=== PATIENT | female | born 1955 | race Caucasian/White ===

== ENCOUNTER → 2016-05-18 | Outpatient (CLI) | payer BC, OTHER ==
[~2016-05-18] MED LIST: LEXA1TAB2 PO; VITA200015 PO
--- NOTE | 2016-05-18 15:26 | REP ---
MR BRAIN WITHOUT AND WITH CONTRAST: HISTORY: Hemifacial spasm. Contrast: ProHance 12 mL. Several punctate areas of increased signal intensity on T2-weighted images are present in the subcortical white matter. This represents small vessel ischemic disease. There is no intraparenchymal hemorrhage, infarct, mass or midline shift. There is no abnormal enhancement. The ventricular system is normal in appearance. There is no extracerebral collection. Mucosal thickening is present in the ethmoid and maxillary sinuses and mastoid air cells. IMPRESSION: Minimal small vessel ischemic disease. Signed by Tho Fernandez MD 05/18/2016 03:29 P
--- NOTE | 2016-05-18 15:31 | REP ---
MR CERVICAL SPINE WITHOUT AND WITH CONTRAST: HISTORY: Hemifacial spasm. Contrast: ProHance 12 mL A small central disc protrusion is present at the C3-4 level. There is minimal effacement of the thecal sac without spinal cord compression. The C3 neural foramina are patent. A disc bulge is present at the C4-5 level. There is minimal effacement of the thecal sac without spinal cord compression. The C4 neural foramina are patent. A small central disc protrusion is present at the C5-6 level. There is minimal effacement of the thecal sac without spinal cord compression. The C5 neural foramina are patent. A disc bulge is present at the C6-7 level. There is minimal effacement of the thecal sac without spinal cord compression. The C6 neural foramina are patent. There is no other disc bulge or herniation. The remaining neural foramina are patent. The spinal cord is normal in signal intensity. There is no abnormal enhancement. Increased signal intensity on T2 weighted images is present in the endplates of the C5 and C6 vertebral bodies. This represents degenerative change. The C4-5 through C6-7 intervertebral discs are decreased in height consistent with disc degeneration. IMPRESSION: There is cervical spondylosis at the C3-4 through C6-7 levels without spinal cord compression. Signed by Tho Fernandez MD 05/18/2016 03:52 P
== END ==
LOC: M RAD 13:26
PROVIDERS: ATTEND Ophthalmology
DX: G51.3 Clonic hemifacial spasm (principal)

== ENCOUNTER → 2016-05-29 | Outpatient (CLI) | payer BC, OTHER ==
[~2016-05-29] VITALS: Ht 162.6 cm; Wt 61.2 kg
[~2016-05-29] MED LIST changes: +LIDOCAINE 2% INJ 100 MG/5 ML SDV (FOR ANES.) As Ordered ONE; +NS 1,000 ML IV SCH; +PROPOFOL 200 MG/20 ML VIAL As Ordered ONE; +ePHEDrine SULFATE 25 MG/5 ML(5MG/ML) SYRINGE As Ordered ONE
--- NOTE | 2016-05-29 14:44 | ROOR ---
Patient Name: Selina Barron Procedure Date: 05/29/2016 2:05 PM Date of : 1955 Age: 60 Room: [facility] Gender: Female Note Status: Finalized Procedure: Colonoscopy to Cecum + Cold Snare Polypectomy + Tattoeing Indications: High risk colon cancer surveillance: Personal history of adenoma with villous component Providers: Rene Lloyd MD Referring MD: Kylah SCOTT DO Requesting Provider: Medicines: Monitored Anesthesia Care Complications: No immediate complications. Procedure: Pre-Anesthesia Assessment: - The heart rate, respiratory rate, oxygen saturations, blood pressure, adequacy of pulmonary ventilation, and response to care were monitored throughout the procedure. The Colonoscope was introduced through the anus and advanced to the cecum, identified by appendiceal orifice and ileocecal valve. The colonoscopy was performed without difficulty. The patient tolerated the procedure well. The quality of the bowel preparation was excellent. Findings: The perianal and digital rectal examinations were normal. Non-bleeding internal hemorrhoids were found during retroflexion. The hemorrhoids were small and Grade I (internal hemorrhoids that do not prolapse). A large polyp was found in the proximal ascending colon. The polyp was carpet-like and sessile. The polyp was removed with a cold snare. Polyp resection was incomplete. The resected tissue was retrieved. Area was successfully injected with 4 mL Spot (carbon black) for tattooing. The exam was otherwise without abnormality on direct and retroflexion views. Impression: - Non-bleeding internal hemorrhoids. - One large polyp in the proximal ascending colon, removed with a cold snare. Incomplete resection. Resected tissue retrieved. Injected. - The examination was otherwise normal on direct and retroflexion views. - The exam was otherwise normal to the cecum. Recommendation: - Patient has a contact number available for emergencies. The signs and symptoms of potential delayed complications were discussed with the patient. Return to normal activities tomorrow. Written discharge instructions were provided to the patient. - High fiber diet. - Discharge patient to home. - Continue present medications. - Await pathology results. - Return to referring physician. - Check Portal Online for Path Results.([email or web address] - The findings and recommendations were discussed with the patient's family. Rene Lloyd MD Rene Lloyd MD 05/29/2016 2:44:21 PM This report has been signed electronically. Number of Addenda: 0 Note Initiated On: 05/29/2016 2:05 PM Estimated Blood Loss: Estimated blood loss: none.
[2016-05-29 15:40] VITALS: BP 159/85
== END ==
LOC: M OPP 12:29
PROVIDERS: ATTEND Internal Medicine Gastroenterology
DX: Z09 Encounter for follow-up examination after completed treatment for conditions other than malignant neoplasm (principal); Z86.010 Personal history of colon polyps; Z83.71 Family history of colonic polyps; D12.2 Benign neoplasm of ascending colon; K64.0 First degree hemorrhoids; F41.9 Anxiety disorder, unspecified; F32.9 Major depressive disorder, single episode, unspecified; E78.5 Hyperlipidemia, unspecified; G47.30 Sleep apnea, unspecified; Z79.899 Other long term (current) drug therapy

== ENCOUNTER 2016-07-09 08:10 | Inpatient (IN) | payer BC, OTHER ==
[~2016-07-09] VITALS: Ht 162.6 cm; Wt 61.0 kg
[~2016-07-09 08:10] MED LIST changes: -LIDOCAINE 2% INJ 100 MG/5 ML SDV (FOR ANES.) As Ordered ONE; -NS 1,000 ML IV SCH; -PROPOFOL 200 MG/20 ML VIAL As Ordered ONE; -ePHEDrine SULFATE 25 MG/5 ML(5MG/ML) SYRINGE As Ordered ONE
[2016-07-09] MEDS ORDERED: ERTAPENEM SODIUM 1 GM in NS MINI-BAG PLUS 50 ML IV ONE (08:30)
[2016-07-09] MEDS ORDERED: LR 1,000 ML IV SCH ×2 (08:30→14:30)
[2016-07-09] MEDS ORDERED: ALVIMOPAN 12 MG CAPSULE (ENTEREG) PO ONE (08:30)
[2016-07-09] MEDS ORDERED: LR 1,000 ML IV ONE (08:30)
[2016-07-09 08:58] LABS: MEAN CORPUSCULAR HEMOGLOBIN 30.3 pg (27.0-33.0); MEAN CORPUSCULAR HGB CONC 33.7 g/dl (32.0-36.5); MEAN CORPUSCULAR VOLUME 89.9 fl (80.0-96.0); RED CELL DISTRIBUTION WIDTH 12.6 % (11.5-14.5); WHITE BLOOD COUNT 4.6 K/mm3 (4.0-10.0)
[2016-07-09] MEDS: ESCITALOPRAM OXALATE 10 MG TAB (LEXAPRO) PO SCH (09:00)
[2016-07-09 09:26] LABS: ANION GAP 8 MEQ/L (8-16); BLOOD UREA NITROGEN 4 MG/DL (7-18); CALCIUM LEVEL 8.7 MG/DL (8.5-10.1); CARBON DIOXIDE LEVEL 28 MEQ/L (21-32); CHLORIDE LEVEL 100 MEQ/L (98-107); CREATININE FOR GFR 0.65 MG/DL (0.55-1.02); GLOMERULAR FILTRATION RATE > 60.0 (>51); GLUCOSE, FASTING 98 MG/DL (70-105); POTASSIUM SERUM 3.2 MEQ/L (3.5-5.1); SODIUM LEVEL 136 MEQ/L (136-145)
[2016-07-09] MEDS ORDERED: BUPIVACAINE HCL 0.25% 30 ML VIAL As Ordered ONE (10:31)
--- NOTE | 2016-07-09 11:03 | ECGEPIP ---
Stationary ECG Study [facility] Test Date: 2016-07-09 Pat Name: BUTCH DUMONT Department: Room: [place] [address] Gender: F Pack Operator: EMILE : 1955 Requested By: Sundeep Jackson Order Number: [id number] Reading MD: Nereida Gandhi Measurements Intervals [place] Rate: 76 P: 38 VA: 132 QRS: -12 QRSD: 106 T: 29 QT: 389 QTc: 438 Interpretive Statements SINUS RHYTHM INCOMP RBBB MODERATE T-WAVE ABNORMALITY, CONSIDER ANTERIOR ISCHEMIA no prior Electronically Signed On 07-09-2016 11:02:52 EDT by Nereida Gandhi
[2016-07-09] MEDS ORDERED: MIDAZOLAM INJ 2 MG/2 ML VIAL (J2250) As Ordered ONE (12:06)
[2016-07-09] MEDS ORDERED: fentaNYL 250 MCG/5 ML INJECTION (J3010) As Ordered ONE (12:06)
[2016-07-09] MEDS ORDERED: HYDROmorphone HCL 2 MG/ML 1ML VIAL (J1170) As Ordered ONE (12:06)
[2016-07-09] MEDS ORDERED: PROPOFOL 200 MG/20 ML VIAL As Ordered ONE ×2 (12:06→12:07)
[2016-07-09] MEDS ORDERED: dexameTHASONE 4 MG/ML 1ML VIAL (J1100) As Ordered ONE (12:06)
[2016-07-09] MEDS ORDERED: LIDOCAINE 2% INJ 100 MG/5 ML SDV (FOR ANES.) As Ordered ONE (12:07)
[2016-07-09] MEDS ORDERED: NEOSTIGMINE 1MG/ML 5 ML SYRINGE (J2710) As Ordered ONE (12:07)
[2016-07-09] MEDS ORDERED: ROCURONIUM BROMIDE 50 MG/5 ML VIAL As Ordered ONE (12:07)
[2016-07-09] MEDS ORDERED: ONDANSETRON 4MG/2ML VIAL (J2405) As Ordered ONE (12:07)
[2016-07-09] MEDS ORDERED: GLYCOPYRROLATE INJ 0.2 MG/ML 2 ML VIAL As Ordered ONE (12:07)
[2016-07-09] MEDS ORDERED: METOCLOPRAMIDE INJ 10MG/2ML VIAL (J2765) IV PRN (14:15)
[2016-07-09] MEDS ORDERED: MORPHINE 2 MG/ML 1ML SYRINGE IV PRN (14:15)
[2016-07-09] MEDS ORDERED: ONDANSETRON 4MG/2ML VIAL (J2405) IV PRN ×2 (14:15→14:30)
[2016-07-09] MEDS ORDERED: NORCO, ANEXSIA 5/325MG TABLET (HYDROcodone/ACETAMINOPHEN) PO PRN ×2 (14:15)
[2016-07-09] MEDS ORDERED: fentaNYL 100 MCG/2 ML INJECTION (J3010) IV PRN (14:30)
[2016-07-09 15:20] VITALS: BP 122/62
[2016-07-09 15:50] VITALS: BP 104/55
[2016-07-09 16:50] VITALS: BP 107/56
[2016-07-09 17:50] VITALS: BP 104/55
[2016-07-09] MEDS: KETOROLAC 30 MG/ML VIAL (J1885) IV SCH ×2 (18:25→22:19)
[2016-07-09] MEDS: LR 1,000 ML IV SCH (18:25)
[2016-07-09 18:50] VITALS: BP 102/51
[2016-07-09 19:50] VITALS: BP 128/65
[2016-07-09] MEDS: ENOXAPARIN 40 MG/0.4 ML SYRINGE (J1650) SC SCH (22:18)
[2016-07-09] MEDS: ALVIMOPAN 12 MG CAPSULE (ENTEREG) PO SCH (22:19)
[2016-07-10] MEDS: LR 1,000 ML IV SCH ×2 (01:31→12:27)
[2016-07-10 02:00] VITALS: BP 105/66
[2016-07-10] MEDS: KETOROLAC 30 MG/ML VIAL (J1885) IV SCH ×2 (03:44→10:25)
[2016-07-10 06:00] VITALS: BP 128/66
--- NOTE | 2016-07-10 06:49 | RO ---
DATE OF PROCEDURE: 07/09/2016 PREOPERATIVE DIAGNOSIS: Villous adenoma of ascending colon. POSTOPERATIVE DIAGNOSIS: Villous adenoma of ascending colon. PROCEDURE PERFORMED: Laparoscopic right hemicolectomy with ileocolonic anastomosis. SURGEON: Dr. Sundeep Jackson DIGITAL PRODUCTION OPERATOR: Dr. Joseph. SECOND OPHTHALMOLOGIST: Christopher Casas, MS-3 ANESTHESIA: General. INDICATIONS FOR PROCEDURE: Patient is a 60-year-old woman who on colonoscopy approximately 4 years ago was found to have a polypoid lesion in the ascending colon. This was resected with pathology revealing tubulovillous adenoma. On followup colonoscopy in December 2015, she was found to have a recurrence of this mass in the mid ascending colon with a resection again performed. Pathology revealed multiple fragments of villous adenoma. She underwent a short interval followup colonoscopy on 05/29/2016 and the polypoid mass was again identified in the mid ascending colon. Multiple fragments of villous adenoma were identified with some focal architectural disarray but no high-grade dysplasia or carcinoma. The patient was now referred for resection. She is for a laparoscopic right hemicolectomy. OPERATIVE PROCEDURE: The patient was taken to the operating room and placed under general endotracheal anesthesia. Thromboembolic deterrent stockings (TEDS) and sequential were utilized. A Stinson catheter was inserted. The patient's abdomen was prepped and draped in a sterile fashion. 0.25% Marcaine was infiltrated along the midline just inferior to the umbilicus. A short midline incision was made and deepened through the fascia and peritoneum under direct vision. A Les cannula was inserted and the abdomen was inflated with carbon dioxide gas. The laparoscope was inserted. She was noted to have a band of adhesions attaching the mid ascending colon to the anterior abdominal wall. There was some dark staining in the anterior wall of the proximal ascending colon consistent with a carbon spot marker. A 5 mm trocar was placed in the low midline and a second 5 mm trocar was placed in the left lower quadrant. Using the harmonic scalpel, the adhesions of the colon to the anterior abdominal wall in the right lower quadrant were divided. The lateral attachments of the cecum and ascending colon were divided following this up along the lateral abdominal wall. The attachments above the hepatic flexure and proximal transverse colon were divided , freeing the colon so this could be pulled inferiorly. Further dissection was carried out in the right upper quadrant to mobilize the hepatic flexure. The retroperitoneal duodenum was identified and protected. A site was selected for division of the proximal transverse colon just proximal to the middle colic vessels. A third 5 mm trocar was placed in the left upper quadrant for additional retraction. The mesentery of the transverse colon was divided just proximal to the middle colic vessels. This was extended up to the wall of the colon and the colon was transected with a firing of the [place] stapler with green negin. A second load was required to complete the division. Attention was then turned to the terminal ileum. Some attachments laterally were divided with the Harmonic and an opening was created through the mesentery of the terminal ileum and the ileum was divided with the [place] stapler. The right colon was then mobilized by dividing any remaining lateral and posterior attachments and dividing the right colon mesentery. The ileocolic vessel was identified clearly and divided using the Harmonic without any bleeding. Dissection proceeded up dividing the right colon mesentery. The final attachments anterior to the right kidney were then divided and the colon was freed. The operative area was irrigated and inspected and there was no evidence of bleeding. Graspers were then placed on the end of the ileum, the specimen, and the end of the transverse colon. The abdomen was then deflated and the Les cannula was removed. The incision was extended to about 5 cm. A small Mal retractor was placed. The specimen was delivered through the wound and set aside. The ends of the small and large bowel was then brought through the retractor. These were aligned with several simple sutures of #3-0 Vicryl and a stapled anastomosis was performed with a linear cutter 55 stapler and completed with a load of the TX60G stapler. A single #3-0 Vicryl was used to imbricate one end of the staple line. The staple line appeared good with no bleeding but excellent vascularity of the tissues. There was no evidence of leak. The anastomosis was washed with saline and then reduced into the abdomen. The Mal retractor was removed. The surgical team all then changed gown and gloves and we changed to the closing tray of sterile instruments. During this time, I opened the specimen. The patient was found to have an approximately 4 cm long x 1-1/2-2 cm wide polypoid lesion in the proximal ascending colon. There were two metallic hemostatic clips attached to this tissue. There was another smaller polyp in the end of the cecum which was perhaps 6-7 mm in size. The specimen was placed in formalin for permanent pathology. On returning to the patient's abdomen, the peritoneum in the lower midline incision was closed with a running suture of #0 Vicryl. The fascia was then closed with interrupted simple sutures of #1 Vicryl. The wound was irrigated with saline several times during the closure. The abdomen was then reinflated. The laparoscope was placed. The anastomosis was identified in the right mid to upper abdomen. The patient was tilted to a reverse Trendelenburg position and rolled to the left. Some small bowel was pulled from posterior to the anastomosis so that this would lie against the retroperitoneum. The anastomosis appeared to slide slightly further into the right mid to lower abdomen. There was no evidence of any leak. There was no bleeding identified. The patient was then returned to a flat position. The abdomen was deflated and the trocars were all removed. The skin incisions were all closed with buried #4-0 and #5-0 Vicryl. Small dressings were applied. The patient tolerated the procedure well without apparent complication. She was awakened in the operating room, extubated and moved to the recovery room in stable condition. MARILU
[2016-07-10] MEDS: ESCITALOPRAM OXALATE 10 MG TAB (LEXAPRO) PO SCH (09:10)
[2016-07-10] MEDS: ALVIMOPAN 12 MG CAPSULE (ENTEREG) PO SCH ×2 (09:10→21:07)
[2016-07-10 10:00] VITALS: BP 146/77
[2016-07-10] MEDS: ACETAMINOPHEN TAB 650MG DOSE (2X325MG) PO PRN (10:34)
[2016-07-10 14:00] VITALS: BP 122/75
[2016-07-10] MEDS ORDERED: KETOROLAC 30 MG/ML VIAL (J1885) IV PRN (16:00)
[2016-07-10] MEDS: ENOXAPARIN 40 MG/0.4 ML SYRINGE (J1650) SC SCH (21:07)
[2016-07-10 22:00] VITALS: BP 109/64
[2016-07-11 02:00] VITALS: BP 116/63
[2016-07-11 06:00] VITALS: BP 120/82
[2016-07-11 09:00] VITALS: BP 132/90
[2016-07-11] MEDS ORDERED: LEXAPRO 20 MG PO SCH (09:00)
[2016-07-11] MEDS: ALVIMOPAN 12 MG CAPSULE (ENTEREG) PO SCH (09:58)
[2016-07-11] MEDS: ACETAMINOPHEN TAB 650MG DOSE (2X325MG) PO PRN (09:59)
--- NOTE | 2016-07-15 10:59 | DSES ---
DATE OF ADMISSION: 07/09/2016 DATE OF DISCHARGE: 07/11/2016 ADMITTING DIAGNOSIS: Villous adenoma of the proximal ascending colon. HISTORY OF PRESENT ILLNESS: The patient is a pleasant 60-year-old woman who had undergone a colonoscopy on 05/29/2016 as a screening procedure. After colonoscopy she was found to have a broad flat polyp in the proximal ascending colon. Biopsies were removed using a snare but the polyp was not felt to be amendable to an endoscopic resection. Pathology report revealed fragments of villous adenoma, but no high-grade dysplasia was identified. The patient has a family history of colon cancer only in a maternal cousin at age 70. The patient reports that her mother and sister have had colon polyps. The patient has not had any abdominal pain although she has suffered from some constipation. The patient was counseled regarding the necessity for removal of the polyp. This will require a partial colectomy and the patient is now being admitted to undergo a laparoscopic right hemicolectomy. HOSPITAL COURSE: The patient had performed a full mechanical and antibiotic bowel preparation at home prior to admission. On the day of admission, she was taken to the operating room where she underwent a laparoscopic right hemicolectomy with ileocolonic anastomosis. She tolerated this very well. Examination of the specimen revealed an approximately 4 cm long x 1-1/2-2 cm wide polypoid lesion in the proximal ascending colon. There were two metallic hemostatic clips attached to the tissue. Another smaller polyp was noted in the cecum. This was sent for permanent pathology. Her pathology report revealed villous adenoma 3.5 cm in maximal diameter. There was an additional tubular adenoma noted. There was no malignancy identified. Multiple reactive pericolonic lymph nodes were identified. The patient's postoperative course was unremarkable. She tolerated clear liquids the evening of surgery. Her Stinson catheter was removed on postop day #1. She had little discomfort. A regular diet was begun on postop day #1. She made excellent progress and was discharged home on postoperative day #2. FINAL DIAGNOSIS: 3.5 cm villous adenoma of the proximal ascending colon. other diagnoses include: Obstructive sleep apnea. Anxiety and depression. Hypercholesterolemia. PROCEDURE PERFORMED: Laparoscopic right hemicolectomy with ileocolostomy. DISPOSITION: The patient was discharged home on 07/11/2016 in good condition. She was not requiring any narcotic analgesics. She was advised to avoid any lifting greater than 25-30 pounds or other strenuous activity. She was to take a regular diet. She could shower as desired. She was to leave her Steri-Strips in place until they came off on their own. She was to call the office for any problems and was otherwise to follow up with me in the office in 10-14 days. She was to continue her vitamin D and Lexapro as before admission.
== END 2016-07-11 12:30 | disposition home or self-care (01) | DRG 221 ==
LOC: M OR 08:10 → M MS5PR 15:15
PROVIDERS: ADMIT Surgery; ATTEND Surgery
PROC: 0DBK4ZZ Excision of Ascending Colon, Percutaneous Endoscopic Approach (ICD-10-PCS; principal; 2016-07-09 10:15)
DX: D12.2 Benign neoplasm of ascending colon (principal)

== ENCOUNTER 2017-07-13 11:25 | Day surgery (SDC) | payer BC, OTHER ==
[~2017-07-13 11:25] MED LIST changes: -LEXA1TAB2 PO; +PROPOFOL 500 MG/50 ML VIAL As Ordered; -VITA200015 PO
[2017-07-13] MEDS: LR 1,000 ML IV (11:45)
[2017-07-13] MEDS ORDERED: fentaNYL 100 MCG/2 ML INJECTION (J3010) As Ordered (11:59)
[2017-07-13] MEDS ORDERED: LIDOCAINE 2% INJ 100 MG/5 ML SDV (FOR ANES.) As Ordered (12:01)
[2017-07-13] MEDS ORDERED: ePHEDrine SULFATE 25 MG/5 ML(5MG/ML) SYRINGE As Ordered (12:58)
[2017-07-13] MEDS ORDERED: GLYCOPYRROLATE INJ 0.2 MG/ML 2 ML VIAL As Ordered (13:15)
== END 2017-07-13 14:08 | disposition home or self-care (01) ==
LOC: M OPP 11:25
DX: Z09 Encounter for follow-up examination after completed treatment for conditions other than malignant neoplasm (principal); Z86.010 Personal history of colon polyps; Z98.0 Intestinal bypass and anastomosis status; R13.10 Dysphagia, unspecified; K21.9 Gastro-esophageal reflux disease without esophagitis; M19.90 Unspecified osteoarthritis, unspecified site; E78.5 Hyperlipidemia, unspecified; Z78.0 Asymptomatic menopausal state; Z87.19 Personal history of other diseases of the digestive system; G47.30 Sleep apnea, unspecified; F32.9 Major depressive disorder, single episode, unspecified; F41.9 Anxiety disorder, unspecified; Z87.891 Personal history of nicotine dependence; Z79.899 Other long term (current) drug therapy
CPT/HCPCS: 45378

== ENCOUNTER → 2019-01-26 | Outpatient (CLI) | payer BC, OTHER ==
[~2019-01-26] MED LIST changes: +ALEV220C2 PO; +CLAR1TAB2 PO; +LEXA1TAB2 PO; +OMEP40CA97 PO; -PROPOFOL 500 MG/50 ML VIAL As Ordered; +VITA200015 PO
--- NOTE | 2019-01-26 17:05 | REP ---
MRI cervical spine: 01/26/2019. Indication: Neck pain. Comparison: 05/18/2016. Technique: Multiplanar short and long TR sequences of the cervical spine were obtained without IV Gadolinium. Findings: There is persistent mild straightening of the cervical lordosis. No worrisome marrow signal is present. The visualized cord is normal. Disc dessication is present throughout. The craniocervical junction is unremarkable. The vertebral artery flow voids are unremarkable as well. C2/C3: There is no focal disc herniation or significant spinal canal / neural foraminal narrowing. C3/C4: There is no focal disc herniation or significant spinal canal / neural foraminal narrowing. C4/C5: There is no focal disc herniation or significant spinal canal / neural foraminal narrowing. C5/C6: There is a posterior central disc extrusion with 4 mm of cephalad migration and mild compression of the ventral cord. The neural foramen are patent. C6/C7: Diffuse disc osteophyte complex is present without significant spinal canal or neural foraminal narrowing. C7/T1: There is no focal disc herniation or significant spinal canal / neural foraminal narrowing. Impression: C5/C6 posterior central disc herniation and additional degenerative sequelae as described. Electronically Signed by Isidoro Howell DO 01/26/2019 04:55 P
== END ==
LOC: M RAD 15:07
PROVIDERS: ATTEND Family Medicine
DX: M25.78 Osteophyte, vertebrae (principal); M54.2 Cervicalgia; M25.511 Pain in right shoulder; M25.512 Pain in left shoulder

== ENCOUNTER → 2021-04-23 | Outpatient (CLI) | payer BC ==
[~2021-04-23] MED LIST changes: +OMEP40CA4 PO; -OMEP40CA97 PO
== END ==
LOC: M RAD 15:35
PROVIDERS: ATTEND Family Medicine
DX: M85.88 Other specified disorders of bone density and structure, other site (principal); M47.812 Spondylosis without myelopathy or radiculopathy, cervical region; M50.90 Cervical disc disorder, unspecified, unspecified cervical region; M17.11 Unilateral primary osteoarthritis, right knee; M25.78 Osteophyte, vertebrae; M85.851 Other specified disorders of bone density and structure, right thigh

== ENCOUNTER → 2021-09-21 | Outpatient (CLI) | payer BC ==
[~2021-09-21] MED LIST changes: +D3 S20002 PO; +IMVE4SUP VG; +THERTAB52 PO
== END ==
LOC: M LABSMTC 11:45
PROVIDERS: ATTEND Anesthesiology
DX: Z01.812 Encounter for preprocedural laboratory examination (principal); Z20.822 Contact with and (suspected) exposure to COVID-19

== ENCOUNTER 2021-09-25 13:15 | Day surgery (SDC) | payer BC ==
[~2021-09-25] VITALS: Ht 162.6 cm; Wt 62.1 kg
[~2021-09-25 13:15] MED LIST changes: +NS 1,000 ML IV ONE
[2021-09-25] MEDS ORDERED: propofoL 200 MG/20 ML VIAL As Ordered ONE (16:04)
[2021-09-25] MEDS ORDERED: LIDOCAINE 2% 100MG/5ML SDV (FOR ANES.) As Ordered ONE (16:04)
[2021-09-25 17:00] VITALS: BP 142/86
== END 2021-09-25 17:04 | disposition home or self-care (01) ==
LOC: M OPP 13:15
PROVIDERS: ATTEND Surgery
DX: R19.4 Change in bowel habit (principal); Z86.010 Personal history of colon polyps; K57.30 Diverticulosis of large intestine without perforation or abscess without bleeding; Z98.0 Intestinal bypass and anastomosis status; M19.90 Unspecified osteoarthritis, unspecified site; M81.0 Age-related osteoporosis without current pathological fracture; F41.9 Anxiety disorder, unspecified; F32.A Depression, unspecified; G43.909 Migraine, unspecified, not intractable, without status migrainosus; Z87.891 Personal history of nicotine dependence; Z79.899 Other long term (current) drug therapy

== ENCOUNTER → 2022-05-11 | Outpatient (REF) | payer BC ==
[~2022-05-11] MED LIST changes: -NS 1,000 ML IV ONE
== END ==
LOC: M LAB REF 16:19
PROVIDERS: ATTEND Internal Medicine
DX: E87.1 Hypo-osmolality and hyponatremia (principal)

== ENCOUNTER → 2024-04-15 | Outpatient (CLI) | payer MEDICARE, BC | LOC: M RAD 09:18 | PROVIDERS: ATTEND Internal Medicine | DX: M54.50 Low back pain, unspecified (principal); M47.816 Spondylosis without myelopathy or radiculopathy, lumbar region ==

== ENCOUNTER → 2024-11-20 | Outpatient (CLI) | payer MEDICARE, BC ==
[~2024-11-20] MED LIST changes: +ESTR4INS VG; -IMVE4SUP VG; +PROHANCE 279.3MG/ML 15ML VIAL As Ordered ONE
== END ==
LOC: M RAD 15:15
PROVIDERS: ATTEND Internal Medicine
DX: G45.9 Transient cerebral ischemic attack, unspecified (principal)
CPT/HCPCS: 70544; 70549; 70551; A9576